=== PATIENT | male | born 1945 | race Caucasian/White ===

== ENCOUNTER 2017-03-25 17:29 | Emergency (ER) | payer BC, OTHER ==
[~2017-03-25] VITALS: Ht 170.2 cm; Wt 102.2 kg
[~2017-03-25 17:29] MED LIST: ALLO300T2 PO; ASPI1TAB7 PO; AUGM875T PO; CITA-48 PO; CLIN150 PO; COZA100T PO; FURO40TA PO; GABA300C3 PO; HYDR-3533 PO; HYDR12.56 PO; LIDO5%T TOP; MICO2CRE4 TOP; PRAV20 PO; TAMS0.4C4 PO; TERB1%T TOP; TERB250 PO; TRIX0.07 TOP
[2017-03-25 17:44] VITALS: BP 139/70; PULSE 81; RESP 18; TEMP 97.5; O2SAT 95
--- NOTE | 2017-03-25 18:06 | PD ---
HPI Chief Complaint: Eye Problems/Injury Time Seen by Provider: 17:58 Travel History International Travel<30 days: No Contact w/Intl Traveler<30days: No Traveled to known affect area: No History of Present Illness HPI This 8-year-old male says he was working at home. He was using a spray or that had a solution of half chlorine and half water. He got some chlorine in his eyes. It's and quite irritated. When it happened he went into the shower and washed his eyes out thoroughly for about 15 minutes. He says he still has some irritation in the eye and it feels like this might be a hair stuck under the eyelid on both sides PFSH Past Medical History Depression: Yes Cardiovascular Problems: Yes (HTN, LOOP RECORDER) High Cholesterol: Yes Genitourinary: Yes (enlarged prostate) Hypertension: Yes Musculoskeletal: Yes (chronic back/neck pain) Immunizations Current: Yes Sleep Apnea: Yes (uses c-pap at night) Influenza Vaccination: Yes ?: Not Past Surgical History Other Surgery: Yes (scar tissue removal bilateral arches) Social History Alcohol Use: Yes (occ) Tobacco Use: No (former) Substance Use: No Allergies-Medications (Allergen,Severity, Reaction): Coded Allergies: Lisinopril (Verified Allergy, Severe, TONGUE SWELLING, 03/25/17) Amlodipine (Verified Allergy, Unknown, 03/25/17) Reported Meds & Prescriptions Reported Meds & Active Scripts Active Active Prescriptions or Reported Medications Unobtainable Review of Systems General / Constitutional: No: Fever, Chills Eyes: Positive: Blurred Vision, Foreign Body Sensation HENT: No: Headaches, Vertigo Cardiovascular: No: Chest Pain or Discomfort, Palpitations Respiratory: No: Cough Gastrointestinal: No: Nausea, Vomiting Genitourinary: No: Urgency, Frequency Musculoskeletal: No: Myalgias, Arthralgias Skin: No Rash, No Itching Physical Exam Narrative GENERAL: Well-developed male SKIN: Focused skin assessment warm/dry. HEAD: Atraumatic. Normocephalic. EYES: Pupils equal and round. No scleral icterus. Bilateral conjunctival injection. The anterior chambers are clear.. ENT: No nasal bleeding or discharge. Mucous membranes pink and moist. NECK: Trachea midline. No JVD. CARDIOVASCULAR: Regular rate and rhythm. No murmur appreciated. RESPIRATORY: No accessory muscle use. Clear to auscultation. Breath sounds equal bilaterally. GASTROINTESTINAL: Abdomen soft, non-tender, nondistended. Hepatic and splenic margins not palpable. MUSCULOSKELETAL: No obvious deformities. No clubbing. No cyanosis. No edema. NEUROLOGICAL: Awake and alert. No obvious cranial nerve deficits. Motor grossly within normal limits. Normal speech. PSYCHIATRIC: Appropriate mood and affect; insight and judgment normal. Data Data Last Documented VS Vital Signs Date Time Temp Pulse Resp B/P Pulse Ox O2 Delivery O2 Flow Rate FiO2 03/25/17 17:44 97.5 81 18 139/70 95 Orders Proparacaine 0.5% Opth Soln (Alcaine 0.5 (03/25/17 18:15) Eye Irrigation (03/25/17 18:02) MDM Medical Decision Making Medical Screen Exam Complete: Yes Emergency Medical Condition: Yes Medical Record Reviewed: Yes Differential Diagnosis Differential includes irritation of eyes to [place], chemical burn Narrative Course Both eyes were irrigated with a liter of saline. After irrigation the pH is 7. Fluorescein stain is negative bilaterally Diagnosis Primary Impression: exposure of both eyes to chemicals Additional Impression: Chemical conjunctivitis of both eyes Scripts Unable to Obtain Active Prescriptions or Reported Meds Axel Holland MD Mar 25, 2017 18:06
[2017-03-25] MEDS ORDERED: PROPARACAINE HCL 0.5% OPHT SOLN 15 ML BTL EACH EYE ONE (18:15)
[2017-03-25 19:15] VITALS: BP 146/80
== END 2017-03-25 19:15 | disposition home or self-care (01) ==
LOC: PHED 17:29
DX: H10.213 Acute toxic conjunctivitis, bilateral (principal); I10 Essential (primary) hypertension; Z77.098 Contact with and (suspected) exposure to other hazardous, chiefly nonmedicinal, chemicals
CPT/HCPCS: 99283

== ENCOUNTER 2017-09-30 00:09 | Emergency (ER) | payer MEDICARE, OTHER ==
[~2017-09-30] VITALS: Ht 170.2 cm; Wt 105.0 kg
[2017-09-30 00:11] VITALS: BP 154/72; PULSE 67; RESP 16; TEMP 98.4; O2SAT 94
--- NOTE | 2017-09-30 00:36 | PD ---
HPI Chief Complaint: ENT Complaint Time Seen by Provider: 00:33 Travel History International Travel<30 days: No Contact w/Intl Traveler<30days: No Traveled to known affect area: No History of Present Illness HPI 72-year-old male presents to emergency department for evaluation of acute onset right sided ear pain. This will come up at 2:30 this morning. It has continued to swell and is draining red brown drainage. She does not recall any trauma. He did have a recent cold but this was short-lived. He has had a low- grade temperature over the last 2 days. He states the pain is severe, constant , throbbing, radiates to his face. There are no other symptoms to report at this time. PFSH Past Medical History Depression: Yes Cardiovascular Problems: Yes (HTN, LOOP RECORDER) High Cholesterol: Yes Diminished Hearing: Yes ([place]) Genitourinary: Yes (enlarged prostate) Hypertension: Yes Musculoskeletal: Yes (chronic back/neck pain) Immunizations Current: Yes Sleep Apnea: Yes (uses c-pap at night) Tetanus Vaccination: Unknown Influenza Vaccination: Yes Past Surgical History Other Surgery: Yes (scar tissue removal bilateral arches) Social History Alcohol Use: Yes (occ) Tobacco Use: No (former) Substance Use: No Allergies-Medications (Allergen,Severity, Reaction): Coded Allergies: lisinopril (Unverified Allergy, Severe, TONGUE SWELLING, 09/30/17) amlodipine (Unverified Allergy, Unknown, 09/30/17) Reported Meds & Prescriptions Reported Meds & Active Scripts Active Capitola (Hydrocodone-Acetaminophen) 5 Mg-325 Mg Tab 1 Tab PO Q6H PRN Floxin Otic (Ofloxacin Otic) 0.3 % Nadine 10 Drop RIGHT EAR DAILY 10 Days Augmentin (Amoxicillin-Clavulanate) 875-125 Mg Tab 1 Tab PO BID 10 Days Reported Tamsulosin (Tamsulosin HCl) 0.4 Mg Cap 0.4 Mg PO HS Citalopram (Citalopram Hydrobromide) 40 Mg Tab 20 Mg PO DAILY Allopurinol 300 Mg Tab 300 Mg PO DAILY Symbicort Inh (Budesonide/Formoterol Fumarate) 80-4.5 Mcg/Act Aero 2 Puff INH DAILY Pravastatin 40 Mg Tab 40 Mg PO HS Hydrochlorothiazide 12.5 Mg Cap 12.5 Mg PO DAILY Gabapentin 300 Mg Cap 300 Mg PO TID Furosemide 40 Mg Tab 40 Mg PO DAILY Losartan (Losartan Potassium) 100 Mg Tab 100 Mg PO DAILY Aspirin 81 Mg Chew 81 Mg CHEW DAILY Review of Systems Except as stated in HPI: all other systems reviewed are Neg Physical Exam Narrative GENERAL: Well-nourished elderly male patient, hard of hearing but in no acute distress. SKIN: Focused skin assessment warm/dry. HEAD: Atraumatic. Normocephalic. No mastoid tenderness EARS: Bilateral pinnae and left external canals appear within normal limits. Significant tenderness to palpation of the right ear. The right external canal is significantly edematous there is a purulent brown drainage from the ear mixed with a sanguinous drainage. Unable to visualize the membrane on the right due to significant edema. Left tympanic membranes without erythema, dullness or perforation. EYES: Pupils equal and round. No scleral icterus. No injection or drainage. ENT: No nasal bleeding or discharge. Mucous membranes pink and moist. NECK: Trachea midline. No JVD. CARDIOVASCULAR: Regular rate and rhythm. No murmur appreciated. RESPIRATORY: No accessory muscle use. Clear to auscultation. Breath sounds equal bilaterally. GASTROINTESTINAL: Abdomen soft, non-tender, nondistended. Hepatic and splenic margins not palpable. MUSCULOSKELETAL: No obvious deformities. No clubbing. No cyanosis. No edema. NEUROLOGICAL: Awake and alert. No obvious cranial nerve deficits. Motor grossly within normal limits. Normal speech. PSYCHIATRIC: Appropriate mood and affect; insight and judgment normal. Data Data Last Documented VS Orders Orders Dexamethasone Inj (Decadron Inj) (09/30/17 00:45) Ceftriaxone Inj (Rocephin Inj) (09/30/17 00:45) Acetamin-Hydrocod 325-5 Mg (Capitola 5-325 (09/30/17 00:45) Dexamethasone Inj (Decadron Inj) (09/30/17 01:00) Ed Discharge Order (09/30/17 01:27) [facility] Medical Decision Making Medical Screen Exam Complete: Yes Emergency Medical Condition: Yes Medical Record Reviewed: Yes Differential Diagnosis Otitis externa versus otitis media versus tympanic membrane rupture versus perforation Narrative Course 72-year-old male presents to emergency department for evaluation of right ear pain, swelling, and drainage. I'm unable to visualize the tympanic membrane on the right due to significant edema of the external canal with associated purulent and sanguinous drainage. Patient is given and and started on oral antibiotic. He is given a dose of Rocephin here in emergency department. He is counseled on care. He is encouraged follow-up with his primary care provider. He agrees to return immediately with any acute worsening symptoms. 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 Return immediately with any acute worsening symptoms Med/Other Pt SpecificInfo: Prescription(s) given Scripts Hydrocodone-Acetaminophen (Capitola) 5 Mg-325 Mg Tab 1 TAB PO Q6H Y for PAIN GREATER THAN 6, #12 TAB 0 Refills Prov: Lizy Barros 09/30/17 Ofloxacin Otic (Floxin Otic) 0.3 % Nadine 10 DROP RIGHT EAR DAILY for Infection for 10 Days, #1 BOTTLE 0 Refills Prov: Lizy Barros 09/30/17 Amoxicillin-Clavulanate (Augmentin) 875-125 Mg Tab 1 TAB PO BID for Infection for 10 Days, #20 TAB 0 Refills Prov: Lizy Barros 09/30/17 Disposition: 01 DISCHARGE HOME Condition: Stable Lizy Barros Sep 30, 2017 00:36
[2017-09-30] MEDS ORDERED: cefTRIAXone INJ 1,000 MG in SODIUM CHLORIDE 0.9% INJ 100 ML IV ONE (00:45)
[2017-09-30] MEDS ORDERED: ACETAMINOPHEN/HYDROcodone 325 MG/5 MG TAB PO ONE (00:45)
[2017-09-30] MEDS ORDERED: DEXAMETHASONE SOD PHOS 4 MG/ML VIAL IM ONE (00:45)
[2017-09-30] MEDS ORDERED: LOSA100T PO (00:47)
[2017-09-30] MEDS ORDERED: CITA40TA4 PO (00:47)
[2017-09-30] MEDS ORDERED: TAMS0.4C4 PO (00:47)
[2017-09-30] MEDS ORDERED: HYDR12.57 PO (00:47)
[2017-09-30] MEDS ORDERED: PRAV40TA2 PO (00:47)
[2017-09-30] MEDS ORDERED: SYMB80AE INH (00:47)
[2017-09-30] MEDS ORDERED: ASPI-516 CHEW (00:47)
[2017-09-30] MEDS ORDERED: GABA300C5 PO (00:47)
[2017-09-30] MEDS ORDERED: FURO40TA PO (00:47)
[2017-09-30] MEDS ORDERED: ALLO300T2 PO (00:47)
[2017-09-30] MEDS ORDERED: DEXAMETHASONE SOD PHOS 4 MG/ML VIAL IV PUSH ONE (01:00)
[2017-09-30] MEDS ORDERED: NORC5TAB PO (01:30)
[2017-09-30] MEDS ORDERED: OFLO1SOL RIGHT EAR (01:30)
[2017-09-30] MEDS ORDERED: AUGM875T3 PO (01:30)
== END 2017-09-30 02:19 | disposition home or self-care (01) ==
LOC: NEPD 00:09
DX: H60.21 Malignant otitis externa, right ear (principal); E78.00 Pure hypercholesterolemia, unspecified; I10 Essential (primary) hypertension; Z87.891 Personal history of nicotine dependence
CPT/HCPCS: 96372; 96374; 96375; 99284; J0696; J1100